=== PATIENT | female | born 2005 | race Hispanic/Latino ===

== ENCOUNTER 2024-03-19 17:24 | Emergency (ER) | payer OTHER ==
--- OUTSIDE RECORDS SUMMARY | 2024-03-19 17:27 | XMS REPORT | Continuity of Care Document ---
Author Name Unknown Address [address] [facility] [address] [place] [address] [facility] thconnect Address [address] [facility] [place] [address] Care Team Providers Care Ux Information Architect Name Role Phone Yarely Chan Primary Care Physician [phone]- [phone] Joslyn De La Cruz Attending Clinician Unavailable KELLE AMARO Attending Clinician Unavailable Draw, [facility] Attending Clinician Unavailrachel e Doctor Unassigned, [place] Attending Clinician U navailable Payers Payer Name Policy Type Policy Number Effective Date Expirati on Date Source [facility] MEDICAID [id number] 2021 00:00:00 Problems Condition Name Condition Details Condition Category Status Onset Date Resolution Date Last Treatment Date Treating Clinician Comments Source No known active problems No known active problems Disease [facility] Social History Social Habit Start Date Stop Date Quantity Comments Source Exposure to SARS-CoV-2 (event) Not sure [facility] Sex Assigned At 2005 00:00:00 2005 00:00:00 [facility] Smoking Status Start Date Stop Date Source Unknown if ever smoked [facility] Medications Ordered Medication Name Filled Medication Name Start Date Stop Date Current Medication? Ordering Clinician Indication Dosage Frequency Signature (SIG) Comments Components Source No known medications 2020-11 14:22: 17 No [facility] Vital Signs Vital Name Observation Time Observation Value Comments S delmy Systolic blood pressure 2021-10-01 20:38:00 109 mm[Hg] [facility] Diastolic blood pressure 2021-10-01 20:38:00 74 mm[Hg] [facility] Heart rate 2021-10-01 20:38:00 81 /min [facility] Body temperature 2021-10-01 20:38:00 36.28 [facility] Respiratory rate 2021-10-01 20:38:00 20 /min [facility] Body height 2021-10-01 20:38:00 163.9 cm [facility] Body weight 2021-10-01 20:38:00 57.3 kg [facility] BMI 2021-10-01 20:38:00 21.33 kg/m2 [facility] Body mass index (BMI) [Percentile] Per age and sex 2021-10-01 20:38:00 52.84 % [facility] Encounters Start Date/Time End Date/Time Encounter Type Admission Type Attending Clinicians Care Facility Care Department Encounter ID Source 2024-03-19 15:09:01 Outpatient De La CruzJoslyn russell [facility] [id number] [facility] 2024-03-06 11:41:00 Outpatient DorothyJoslyn [facility] [id number] [facility] 2021-10-01 15:00:00 2021-10-01 15:00:00 Outpatient KELLE MODI [facility] [id number] [facility] 2021-10-01 14:26:06 2021-10-01 14:56:06 Office Visit Kelle Amaro [facility] [id number] [facility] 2021-08-17 16:00:00 2021-08-17 16:00:00 Outpatient KELLE MODI [facility] [id number] [facility] 2021-06-26 15:05:28 2021-06-26 15:20:28 Building Services Technician Visit Draw, [facility] Kelle Amaro [facility] Office Building [id number] [facility] 2021-06-26 13:36:43 2021-06-26 14:36:43 Office Visit Kelle Amaro [facility] Office Building [id number] [facility] 2021-06-26 14:00:00 2021-06-26 14:00:00 Outpatient Rohit AMAROKELLE [facility] [id number] [facility] 2021-06-26 00:00:00 2021-06-26 00:00:00 Orders Only Doctor Unassigned, [place] [facility] [id number] [facility]
[2024-03-19 18:43] LABS: SARS-CoV-2 Antigen CONTROL BLUE LINE VIS/BG OK; SARS-CoV-2 Antigen Rapid Res Negative (Negative)
--- NOTE | 2024-03-19 19:09 | EDPHYS ---
Physician Documentation [facility] Name: Sara Trimble Age: 19 yrs Sex: Female : 2005 Arrival Date: 03/19/2024 Time: 17:24 Bed Treatment Private MD: ED Physician Ben Gregory HPI: 03/19 17:45 This 19 yrs old Female presents to ER via Ambulatory with complaints of Sore cp Throat. 17:45 The patient presents with sore throat. cp 17:45 Onset: The symptoms/episode began/occurred 2 day(s) ago. Associated signs and symptoms: cp Pertinent positives: sinus congestion, runny nose, slight cough, Pertinent negatives diarrhea, fever, headache, vomiting. 17:45 Severity of symptoms: in the emergency department the symptoms are unchanged, despite cp home interventions. Historical: - Allergies: 17:38 No Known Allergies; ld1 - Home Meds: 17:38 None [Active]; ld1 - PMHx: 17:38 None; ld1 - PSHx: 17:38 None; ld1 - Immunization history:: Adult Immunizations up to date. - Infectious Disease History:: Denies. - Social history:: Smoking status: Patient denies any tobacco usage or history of. ROS: 17:50 Constitutional: Negative for body aches, chills, fever, poor PO intake, cp 17:50 Eyes: Negative for injury, pain, redness, and discharge, cp 17:50 ENT: Positive for sinus congestion, sore throat, Negative for drainage from ear(s), ear pain, difficulty swallowing, difficulty handling secretions, 17:50 Respiratory: Positive for slight cough, Negative for shortness of breath, wheezing, 17:50 Abdomen/GI: Negative for vomiting, diarrhea, constipation, 17:50 : Negative for urinary symptoms, 17:50 Neuro: Negative for altered mental status, headache, weakness, 17:50 All other systems are negative, Exam: 17:55 Constitutional: The patient appears in no acute distress, alert, awake, non-toxic, well cp developed, well nourished, 17:55 Head/Face: Normocephalic, atraumatic. cp 17:55 Eyes: Periorbital structures: appear normal, Conjunctiva: normal, no exudate, no injection, Sclera: no appreciated abnormality, Lids and lashes: appear normal, bilaterally, 17:55 ENT: External ear(s): are unremarkable, Ear canal(s): are normal, clear, TM's: dullness, bilaterally, Nose: is normal, Mouth: Lips: moist, Oral mucosa: pink and intact, moist, Posterior pharynx: Airway: no evidence of obstruction, patent, Tonsils: no enlargement, no exudate, erythema, that is mild, exudate, is not appreciated, 17:55 Neck: ROM/movement: Meningeal signs: are not present, Lymph nodes: no appreciated lymphadenopathy, 17:55 Chest/axilla: Inspection: normal, 17:55 Cardiovascular: Rate: normal, Rhythm: regular, 17:55 Respiratory: the patient does not display signs of respiratory distress, Respirations: normal, no use of accessory muscles, no retractions, labored breathing, is not present, Breath sounds: are clear throughout, no decreased breath sounds, no stridor, no wheezing, 17:55 Abdomen/GI: Inspection: abdomen appears normal, Palpation: abdomen is soft and non-tender, in all quadrants, 17:55 Skin: no rash present. Vital Signs: 17:38 BP 111 / 81; Pulse 76; Resp 18; Temp 98.2(TE); Pulse Ox 98% on R/A; Weight 56.7 kg; ld1 Height 5 ft. 4 in. ; Pain 1/10; 19:24 BP 107 / 65; Pulse 80; Resp 18 S; Pulse Ox 99% on R/A; as6 17:38 Body Mass Index 21.46 (56.70 kg, 162.56 cm) - Percentile 46.8 % ld1 17:38 Pain Scale: Adult ld1 MDM: 17:[address] [facility] 19:08 Data reviewed: vital signs, nurses notes, lab test result(s). 19:08 Differential diagnosis: group A strep tonsillitis, influenza, peritonsillar abscess cp pharyngitis, tonsillitis, sinusitis. Counseling: I had a detailed discussion with the patient and/or guardian regarding the historical points, exam findings, and any diagnostic results supporting the discharge/admit diagnosis, lab results, the need for outpatient follow up, a family practitioner, to return to the emergency department if symptoms worsen or persist or if there are any questions or concerns that arise at home. 03/19 17:37 Order name: SARS RAPID; Complete Time: 18:53 cp 03/19 18:53 Interpretation: Reviewed. cp 03/19 17:37 Order name: Influenza Screen (a \T\ B); Complete Time: 19:07 cp 03/19 19:07 Interpretation: Reviewed. cp 03/19 17:37 Order name: Strep cp 03/19 18:53 Interpretation: Reviewed. 03/19 18:52 Order name: Throat Culture EDMS Administered Medications: No medications were administered Disposition Summary: 03/19/24 19:08 Discharge Ordered Notes: Location: Home cp Problem: new cp Symptoms: are unchanged cp Condition: Stable cp Diagnosis - Acute pharyngitis, unspecified cp - Nasal congestion cp Followup: cp - With: Private Physician - When: 2 - 3 days - Reason: Worsening of condition Discharge Instructions: - Discharge Summary Sheet cp - Sore Throat cp Forms: - Medication Reconciliation Form cp - Antibiotic Education cp - Prescription Opioid Use cp - Patient Portal Instructions cp - Leadership Thank You Letter cp Prescriptions: - Flonase Allergy Relief 50 mcg/actuation Nasal spray, suspension - spray 1 spray INTRANASAL route daily administer into each nostril; 1 unit; cp Refills: 0, Product Selection Permitted - Tessalon Perles 100 mg Oral Capsule - take 1 capsule ORAL route every 8 hours As needed; 15 capsule; Refills: 0, cp Product Selection Permitted Addendum: 03/20/2024 22:09 Co-signature as Attending Physician, Ben Gregory MD I agree with the assessment and c may plan of care. Signatures: Dispatcher [employer] EDBen Ontiveros MD MD cha Page, Corey, PA PA cp Sims, Lauren, RN RN ld1
--- NOTE | 2024-03-19 19:09 | ER ---
Nurse's Notes [facility] Name: Sara Trimble Age: 19 yrs Sex: Female : 2005 Arrival Date: 03/19/2024 Time: 17:24 Bed Treatment Private MD: Diagnosis: Acute pharyngitis, unspecified;Nasal congestion Presentation: 03/19 17:38 Chief complaint: Patient states: Runny nose, congestion, sinus pain, sore throat X 2 ld1 days. Coronavirus screen: At this time, the client does not indicate any symptoms associated with coronavirus-19. Ebola Screen: No symptoms or risks identified at this time. Initial Sepsis Screen: Does the patient meet any 2 criteria? No. Patient's initial sepsis screen is negative. Does the patient have a suspected source of infection? No. Patient's initial sepsis screen is negative. Risk Assessment: Do you want to hurt yourself or someone else? Patient reports no desire to harm self or others. Onset of symptoms was March 19, 2024. 17:38 Method Of Arrival: Ambulatory ld1 17:38 Acuity: BRIDGETTE 4 ld1 Triage Assessment: 17:38 General: Appears in no apparent distress. comfortable, Behavior is calm, cooperative, ld1 appropriate for age. Pain: Denies pain. EENT: No signs and/or symptoms were reported regarding the EENT system. Reports pain in uvula, left aspect of posterior pharynx and right aspect of posterior pharynx. Neuro: Level of Consciousness is awake, alert, obeys commands, Oriented to person, place, time, situation. Cardiovascular: Capillary refill < 3 seconds Patient's skin is warm and dry. Respiratory: Airway is patent Respiratory effort is even, unlabored. GI: Abdomen is flat, non-distended. Historical: - Allergies: 17:38 No Known Allergies; ld1 - Home Meds: 17:38 None [Active]; ld1 - PMHx: 17:38 None; ld1 - PSHx: 17:38 None; ld1 - Immunization history:: Adult Immunizations up to date. - Infectious Disease History:: Denies. - Social history:: Smoking status: Patient denies any tobacco usage or history of. Screenin:23 [facility] ED Fall Risk Assessment (Adult) History of falling in the last 3 months, as6 including since admission No falls in past 3 months (0 pts) Confusion or Disorientation No (0 pts) Intoxicated or Sedated No (0 pts) Impaired Gait No (0 pts) Mobility Assist Device Used No (0 pt) Altered Elimination No (0 pt) Score/Fall Risk Level 0 - 2 = Low Risk Oriented to surroundings, Maintained a safe environment, Educated pt \T\ family on fall prevention, incl call for assistance when getting out of bed, Assessed \T\ reinforced patient's understanding of fall precautions. Abuse screen: Denies threats or abuse. Denies injuries from another. Nutritional screening: No deficits noted. Tuberculosis screening: No symptoms or risk factors identified. Assessment: 19:21 General: Appears in no apparent distress. Respiratory: Airway is patent Trachea midline as6 Respiratory effort is even, unlabored, Respiratory pattern is regular, symmetrical. Vital Signs: 17:38 BP 111 / 81; Pulse 76; Resp 18; Temp 98.2(TE); Pulse Ox 98% on R/A; Weight 56.7 kg; ld1 Height 5 ft. 4 in. ; Pain 1/10; 19:24 BP 107 / 65; Pulse 80; Resp 18 S; Pulse Ox 99% on R/A; as6 17:38 Body Mass Index 21.46 (56.70 kg, 162.56 cm) - Percentile 46.8 % ld1 17:38 Pain Scale: Adult ld1 ED Course: 17:28 Patient arrived in ED. mr 17:28 Ben Mota PA is PHCP. cp 17:29 Ben Gregory MD is Attending Physician. cp 17:38 Triage completed. ld1 17:38 Arm band placed on right wrist. ld1 17:54 Luis Jose, LORENA is Primary Nurse. as6 18:23 Strep Sent. as6 18:23 Influenza Screen (a \T\ B) Sent. as6 18:23 SARS RAPID Sent. as6 19:22 Bed in low position. Call light in reach. Adult w/ patient. Provided Education on: rx as6 teaching. 19:22 No provider procedures requiring assistance completed. Patient did not have IV access as6 during this emergency room visit. Administered Medications: No medications were administered Medication: 19:23 VIS not applicable for this client. as6 Outcome: 19:08 Discharge ordered by . cp 19:22 Discharged to home ambulatory, with family, as6 19:22 Condition: stable 19:22 Discharge instructions given to patient, family, Instructed on discharge instructions, follow up and referral plans. medication usage, Demonstrated understanding of instructions, follow-up care, medications, Prescriptions given X 2, 19:24 Patient left the ED. as6 Signatures: Steffanie Polanco, Reg Reg mr Mota Ben, Nehal Duke cp, RN RN ld1 Luis Jose RN RN as6
[2024-03-19 19:35] VITALS: BP 107/65; TEMP 98.2; O2SAT 99
== END 2024-03-19 19:24 | disposition home or self-care (01) ==
LOC: ER 17:24
DX: J02.9 Acute pharyngitis, unspecified (principal); R09.81 Nasal congestion; Z11.52 Encounter for screening for COVID-19
CPT/HCPCS: 36415; 87070; 87081; 87804; 87811; 99283